=== PATIENT | female | born 1930 | race Caucasian/White ===

== ENCOUNTER → 2016-11-06 | Outpatient (CLI) | payer MEDICARE, BC ==
--- NOTE | 2016-11-06 16:24 | PCVCIMAG ---
EXAM: BILATERAL SUPERFICIAL VENOUS DUPLEX INDICATION: Leg pain and swelling. FINDINGS: Right leg: No thrombus in the common femoral, main femoral, or popliteal veins. These veins are compressible. Right Great Saphenous Vein: At the saphenofemoral junction the diameter is 8.5 mm, in the mid thigh it is 3.7 mm, and in the calf it is 4.4 mm. There is significant venous insufficiency/reflux throughout. Venous insufficiency/reflux duration is 4.4 seconds. Right Small Saphenous Vein: At the saphenopopliteal junction the diameter is 5.0 mm, and in the calf it is 4.4 mm. There is significant venous insufficiency/reflux throughout. Venous insufficiency/reflux duration is 3.6 seconds. There is not a cranial extension present. Left leg: No thrombus in the common femoral, main femoral, or popliteal veins. These veins are compressible. Left Great Saphenous Vein: At the saphenofemoral junction the diameter is 7.3 mm, in the mid thigh it is 1.7 mm, and in the calf it is 2.9 mm. There is significant venous insufficiency/reflux throughout. Venous insufficiency/reflux duration is 3.4 seconds. Left Small Saphenous Vein: At the saphenopopliteal junction the diameter is 5.1 mm, and in the calf it is 3.0 mm. There is significant venous insufficiency/reflux throughout. Venous insufficiency/reflux duration is 5.2 seconds. There is not a cranial extension present. IMPRESSION: Right Great Saphenous Vein: Significant venous insufficiency/reflux is present as noted above. Note is made vein is diminutive in size. Right Small Saphenous Vein: Significant venous insufficiency/reflux is present as noted above. Note is made vein is diminutive in size. Left Great Saphenous Vein: Significant venous insufficiency/reflux is present as noted above. Note is made vein is diminutive in size. Left Small Saphenous Vein: Significant venous insufficiency/reflux is present as noted above. Note is made vein is diminutive in size. LOC:[id number]
--- NOTE | 2016-11-06 18:22 | PCVCIMAG ---
EXAM: BILATERAL LOWER EXTREMITY ARTERIAL DUPLEX INDICATION: Peripheral Arterial Disease. Leg pain. FINDINGS: Right Leg: Satisfactory arterial waveforms in the common femoral, profunda femoral, superficial femoral, and popliteal arteries. Complete occlusion distal anterior tibial and posterior tibial arteries. Satisfactory arterial waveforms in the peroneal artery. Left Leg: Satisfactory arterial waveform in the common femoral and profunda femoral arteries and throughout the superficial femoral artery. Subtotal segmental occlusion proximal popliteal artery. Blunted arterial waveform in the distal popliteal artery. Occlusion mid and distal anterior tibial artery. Peroneal artery and posterior tibial arteries are patent. IMPRESSION: Subtotal occlusion proximal left popliteal artery. Occlusion of the distal right anterior and posterior tibial arteries. Occlusion of the mid/distal left anterior tibial artery. LOC:[id number]
== END | disposition home or self-care (01) ==
LOC: PCVCIMAG 14:12
PROVIDERS: ATTEND Nuclear Medicine Nuclear Cardiology
DX: I73.9 Peripheral vascular disease, unspecified (principal); I87.2 Venous insufficiency (chronic) (peripheral); M19.90 Unspecified osteoarthritis, unspecified site; M81.0 Age-related osteoporosis without current pathological fracture; J43.9 Emphysema, unspecified; H40.9 Unspecified glaucoma; Z79.899 Other long term (current) drug therapy; Z88.0 Allergy status to penicillin
CPT/HCPCS: 93925; 93970; G0463

== ENCOUNTER → 2016-11-20 | Outpatient (CLI) | payer MEDICARE, BC ==
[~2016-11-20] MED LIST: ASPIRIN 325 MG TABLET ONE; CLOPIDOGREL BISULFATE 75 MG TABLET ONE; EPTIFIBATIDE BOLUS 2,000 MCG/ML 10ML VIAL. IV ONE; HEPARIN SODIUM 5,000 UNIT/ML VIAL for PCVC. ONE; IODIXANOL 270 MG/ML 100 ML VIAL. ONE; IV NORMAL SALINE 1000ML BAG 1,000 ML ONE; IV NORMAL SALINE 500ML BAG 500 ML ONE; LIDOCAINE 1% Multi-Dose 20 ML VIAL. ONE; MIDAZOLAM HCL/PF 2 MG/2 ML VIAL. ONE; VANCOMYCIN 1GM IVPB FOR OMNI 250 ML ONE; diazePAM 5 MG TABLET ONE; fentaNYL PF VIAL 100 MCG/2 ML VIAL ONE
--- NOTE | 2016-11-20 13:20 | PCVCINTER ---
EXAM: 1. AORTOGRAM AND BILATERAL LOWER EXTREMITY RUNOFF ANGIOGRAM 2. BILATERAL RENAL ANGIOGRAPHY 3. LEFT POPLITEAL ARTERY ATHERECTOMY AND STENT PLACEMENT. 4. SECONDARY THROMBECTOMY LEFT POPLITEAL ARTERY. 5. DRUG COATED BALLOON ANGIOPLASTY LEFT POPLITEAL ARTERY. INDICATION: Peripheral arterial disease. Coronary artery disease. Nonhealing ulcer right lower extremity. Hypertension. Renal atherosclerosis. PROCEDURE: Procedure and risks of angiography intervention is appropriate including limb loss stroke and were discussed with the patient's family and consent obtained. The patient's right groin was prepped abnormal sterile fashion. IV conscious sedation was used to procedure with appropriate monitoring for 90 minutes. Ultrasound was used to interrogate the right groin and showed the right common femoral artery to be patent. A permanent spot film was obtained. Under ultrasound guidance access into the right common femoral artery was obtained and a 5 Pakistani sheath was placed. Through this a 5 Pakistani flush catheter was placed into the abdominal aorta at the level of the renal arteries and AP aortogram was performed. Catheter was positioned at the aortic bifurcation and both oblique views of the pelvis were obtained. Catheter was positioned into the right external iliac artery and right leg runoff angiography was performed. Catheter was exchanged for a visceral catheter was placed into the right renal arteries and right renal angiograms obtained. Catheter was placed into the the left renal arteries and left renal angiograms were obtained. Catheter was advanced to the level of the left external iliac artery and left leg runoff angiography was obtained. Patient was given 4500 units of heparin. A 6 Pakistani crossover sheath was placed via the right groin to the level of the left common femoral artery. Atherectomy of the left upper popliteal artery was performed with 2.0 mm [employer] laser atherectomy catheter in the standard fashion. Following atherectomy small areas of thrombus were observed and because of this secondary thrombectomy throughout the left upper popliteal artery was carried out with mechanical suction thrombectomy catheter in the standard fashion. Minimal debris was removed. Stent placement across the areas of high-grade stenosis in the left upper popliteal artery was carried out with a 6 x 80 Smart control stent with subsequent dilatation to 5.0 mm. Following this drug coated balloon angioplasty of the left popliteal artery was carried out with a 5 x 100 [employer]OLLER catheter. Follow-up angiogram was performed. Catheters and wires removed. Sheath was removed and hemostasis obtained using the Exoseal device. No immediate complications. FINDINGS: Aortogram: There is one right and one left renal artery. Moderate plaque infrarenal abdominal aorta without significant stenosis. Pelvis: Mild scattered plaque in the right and left common and external iliac arteries without significant stenosis. Both internal iliac arteries are patent. The right and left common femoral and profunda femoral arteries show good patency. Right renal artery: Mild plaque proximal vessel does not cause significant stenosis. Left renal artery: Mild plaque proximal vessel does not cause significant stenosis. Right leg: Scattered plaque superficial femoral artery and popliteal artery without flow-limiting stenosis. The anterior tibial artery shows diffuse high-grade stenoses throughout its proximal and midportion. The posterior tibial artery is occluded. Mild stenosis tibioperoneal trunk. Peroneal artery shows good patency to refill the pedal vessels. Left leg: Moderate plaque throughout the superficial femoral artery without significant stenosis. Segmental occlusion of the upper popliteal artery. Mid and lower popliteal artery is patent. The posterior tibial artery shows diffuse high-grade stenoses throughout. The peroneal artery is dominant runoff vessel is widely patent to refill the distal posterior tibial artery which runs off into the plantar arteries. The anterior tibial artery shows long segment occlusion. Left popliteal artery: Following procedure as above vessel is widely patent. IMPRESSION: Complete occlusion upper left popliteal artery was treated as above with good patency restored. High-grade stenosis or occlusion of the right and left anterior and posterior tibial arteries. follow up LOC:[id number]
== END | disposition home or self-care (01) ==
LOC: PCVCINTER 13:57
PROVIDERS: ATTEND Nuclear Medicine Nuclear Cardiology
DX: I70.213 Atherosclerosis of native arteries of extremities with intermittent claudication, bilateral legs (principal); I70.1 Atherosclerosis of renal artery; I25.10 Atherosclerotic heart disease of native coronary artery without angina pectoris
CPT/HCPCS: 36252; 37227; 75716; 76937; 99152; 99153; C1725; C1751; C1757; C1760; C1769; C1876; C1885; C1887; C1894; C2623; J1327; J1644; J2250; J3010; J3370; J7030; J7040; Q9966

== ENCOUNTER → 2016-11-26 | Outpatient (CLI) | payer MEDICARE, BC | END | disposition home or self-care (01) | LOC: PCVCCLINIC 15:13 | PROVIDERS: ATTEND Nuclear Medicine Nuclear Cardiology | DX: I73.9 Peripheral vascular disease, unspecified (principal); I87.2 Venous insufficiency (chronic) (peripheral); J43.9 Emphysema, unspecified; M81.0 Age-related osteoporosis without current pathological fracture; M19.90 Unspecified osteoarthritis, unspecified site; Z90.710 Acquired absence of both cervix and uterus; Z96.643 Presence of artificial hip joint, bilateral; Z79.82 Long term (current) use of aspirin; Z79.899 Other long term (current) drug therapy; Z95.828 Presence of other vascular implants and grafts; Z88.0 Allergy status to penicillin | CPT/HCPCS: G0463 ==

== ENCOUNTER → 2017-02-22 | Outpatient (CLI) | payer MEDICARE, BC ==
--- NOTE | 2017-02-22 15:30 | PCVCIMAG ---
EXAM: BILATERAL CAROTID DUPLEX INDICATION: Carotid Occlusive Disease. FINDINGS: Doppler Measurements (centimeters per second): RIGHT: Peak CCA-74, Peak ECA-81, Diastolic ICA-20, Peak ICA-65, ICA/CCA Ratio-0.9. LEFT: Peak CCA-78, Peak ECA-73, Diastolic ICA-21, Peak ICA-77, ICA/CCA Ratio-0.8. RIGHT CAROTID: The carotid bulb has minimal plaque. The proximal internal carotid artery shows no significant stenosis. The common carotid artery shows no significant stenosis. The external carotid artery shows no significant stenosis. LEFT CAROTID: The carotid bulb has minimal plaque. The proximal internal carotid artery shows no significant stenosis. The common carotid artery shows no significant stenosis. The external carotid artery shows no significant stenosis. Antegrade flow in both vertebral arteries. IMPRESSION: No significant stenosis of the right internal carotid artery with minimal plaque. No significant stenosis of the left internal carotid artery with minimal plaque. LOC:[id number]
--- NOTE | 2017-02-22 16:30 | PCVCIMAG ---
EXAM: BILATERAL LOWER EXTREMITY ARTERIAL DUPLEX INDICATION: Peripheral Arterial Disease. Leg pain. FINDINGS: Right Leg: Satisfactory arterial waveforms in the common femoral and profunda femoral artery and throughout the superficial femoral artery and popliteal artery without flow-limiting stenosis. Unchanged occlusion throughout the posterior tibial artery. The peroneal artery and anterior tibial artery are patent. Left Leg: Satisfactory arterial waveforms in the common femoral and profunda femoral artery and throughout the superficial femoral artery and popliteal artery without flow-limiting stenosis. Previous popliteal artery stent is maintaining good patency. Occlusion of the anterior tibial artery. The peroneal artery and posterior tibial artery are patent. IMPRESSION: No right or left superficial femoral artery or popliteal artery stenoses. Previous left artery stent is maintaining good patency. Unchanged right posterior and left anterior tibial artery occlusions. LOC:[id number]
== END | disposition home or self-care (01) ==
LOC: PCVCIMAG 13:49
PROVIDERS: ATTEND Nuclear Medicine Nuclear Cardiology
DX: I65.23 Occlusion and stenosis of bilateral carotid arteries (principal); I73.9 Peripheral vascular disease, unspecified; I87.2 Venous insufficiency (chronic) (peripheral); H40.9 Unspecified glaucoma; J43.9 Emphysema, unspecified; M19.90 Unspecified osteoarthritis, unspecified site; M81.0 Age-related osteoporosis without current pathological fracture; I77.1 Stricture of artery; Z95.828 Presence of other vascular implants and grafts; Z90.710 Acquired absence of both cervix and uterus; Z96.643 Presence of artificial hip joint, bilateral; Z88.0 Allergy status to penicillin; Z91.013 Allergy to seafood; Z79.82 Long term (current) use of aspirin; Z79.899 Other long term (current) drug therapy
CPT/HCPCS: 93880; 93925; G0463

== ENCOUNTER → 2017-05-06 | Outpatient (CLI) | payer MEDICARE, BC ==
--- NOTE | 2017-05-06 20:42 | PCVCIMAG ---
EXAM: VENOUS DUPLEX RIGHT LOWER EXTREMITY INDICATION: Leg pain and swelling. FINDINGS: Right leg: No thrombus in the common femoral, main femoral, or popliteal veins. These veins are compressible with phasic flow. Calf veins are unremarkable where seen. IMPRESSION: No evidence of deep venous thrombosis in the right lower extremity as detailed above. No evidence of right popliteal cyst. LOC:[id number]
--- NOTE | 2017-05-06 20:48 | PCVCIMAG ---
EXAM: RIGHT LOWER EXTREMITY ARTERIAL DUPLEX INDICATION: Peripheral Arterial Disease. Leg pain. FINDINGS: Right Leg: Satisfactory arterial waveforms throughout the common/profunda/superficial femoral, popliteal, anterior tibial, and peroneal arteries. Occlusion throughout the posterior tibial artery. Otherwise no flow limiting stenosis seen. IMPRESSION: Occlusion throughout the right posterior tibial artery. Otherwise no flow-limiting stenosis in the right lower extremity identified. LOC:[id number]
== END | disposition home or self-care (01) ==
LOC: PCVCIMAG 11:02
PROVIDERS: ATTEND Nuclear Medicine Nuclear Cardiology
DX: M79.604 Pain in right leg (principal); M79.89 Other specified soft tissue disorders
CPT/HCPCS: 93926; 93971